=== PATIENT | male | born 1990 | race Caucasian/White ===

== ENCOUNTER 2017-09-07 06:09 | Emergency (ER) | payer BC, OTHER ==
[~2017-09-07] VITALS: Ht 175.3 cm; Wt 82.8 kg
[~2017-09-07 06:09] MED LIST: TAMS0.4C38 PO; TRAM-10 PO
[2017-09-07 06:13] VITALS: TEMP 36.8; Ht 175.3 cm; Wt 82.8 kg
[2017-09-07] MEDS ORDERED: ONDANSETRON INJ 2 MG/ML 2 ML VIAL IV STA (06:29)
[2017-09-07] MEDS ORDERED: SODIUM CHLORIDE 0.9% 1000ML 1,000 ML IV STA (06:29)
[2017-09-07] MEDS ORDERED: HYDROmorphone INJ 1 MG/ML SYR IV STA (06:29)
[2017-09-07 06:39] LABS: BASO % 0.2 %; BASO ABS # 0.03 K/uL (0-0.2); EOS % 0.9 %; EOS ABS # 0.12 K/uL (0-0.5); HEMATOCRIT 47.4 % (42-52); HEMOGLOBIN 16.7 g/dL (14.0-18.0); IG# 0.05 K/uL (0.00-0.02); LYMPH ABS # 1.92 K/uL (1.2-3.4); MEAN CELL VOLUME 88.8 fL (80-100); MEAN CORPUSCULAR HEMOGLOBIN 31.3 pg (25-34); MEAN CORPUSCULAR HGB CONC 35.2 g/dl (32-36); MEAN PLATELET VOLUME 10.6 fL (7.4-10.4); MONO % 7.2 %; MONO ABS # 0.92 K/uL (0.11-0.59); NEUT % 76.3 %; NEUT ABS # 9.78 K/uL (1.4-6.5); PLATELET COUNT 246 K/uL (130-400); RED CELL DISTRIBUTION WIDTH CV 13.8 % (11.5-14.5); RED CELL DISTRIBUTION WIDTH SD 45.2 fL (36.4-46.3); WHITE BLOOD COUNT 12.82 K/uL (4.8-10.8)
[2017-09-07 06:57] LABS: ALBUMIN 4.3 gm/dl (3.4-5.0); CALCIUM 9.3 mg/dl (8.5-10.1); CREATININE 1.46 mg/dl (0.60-1.40); POTASSIUM 3.7 mmol/L (3.5-5.1); TOTAL PROTEIN 8.3 gm/dl (6.4-8.2)
[2017-09-07] MEDS ORDERED: HYDROmorphone INJ 0.5 MG/0.5 ML SYR IV STA (08:56)
[2017-09-07] MEDS ORDERED: KETOROLAC TROMETHAMINE 30 MG/ML VIAL IV STA (08:56)
[2017-09-07] MEDS ORDERED: OXYC-57 PO (08:58)
[2017-09-07 09:04] VITALS: BP 117/72; PULSE 97; O2SAT 97
--- NOTE | 2017-09-07 09:04 | DIAGNOSTIC IMAGING REPORT ---
(SKY/BLAD)RETROPERITON COMP HISTORY: 27 years-old Male Pt c/o Rt sided flank pain acute right-sided flank pain COMPARISON: KUB of same day, CT 04/21/2015 TECHNIQUE: Multiple real-time sonographic images of the kidneys and bladder were obtained assessing grayscale appearance and color flow FINDINGS: The right kidney measures 11.7 cm in length and demonstrates mild right-sided hydronephrosis. 8 mm cyst of the interpolar right kidney laterally. Urinary bladder is unremarkable. Left kidney demonstrates no shadowing renal calculi or hydronephrosis. Hypoechoic 8 mm area of the interpolar left kidney may reflect a small cyst. Left kidney measures up to 10.5 cm in length. IMPRESSION: 1. Mild right-sided hydronephrosis. 2. Unremarkable sonographic appearance of the bladder and left kidney. The above report was generated using voice recognition software. It may contain grammatical, syntax or spelling errors. Electronically signed by: Javier Escudero M.D. 09/07/2017 8:06 AM Dictated Date/Time: 09/07/2017 8:01 AM
--- NOTE | 2017-09-07 09:04 | DIAGNOSTIC IMAGING REPORT ---
KUB CLINICAL HISTORY: Right flank pain. COMPARISON STUDY: CT of the abdomen and pelvis April 21, 2015. FINDINGS: The bowel gas pattern is normal. A 4 mm left pelvic calcification was shown to represent a phlebolith on prior CT. A punctate 1 mm calcific density likely reflects a phlebolith although a tiny distal right ureteral calculus could appear similar. IMPRESSION: No convincing urinary calculi identified. Punctate 1 mm right pelvic application likely reflects a phlebolith although a tiny distal right ureteral calculus could appear similar. Electronically signed by: Joseph Downey M.D. 09/07/2017 7:28 AM Dictated Date/Time: 09/07/2017 7:23 AM
--- NOTE | 2017-09-07 09:24 | EMERGENCY ROOM VISIT NOTE ---
History Report prepared by Vik: Lorena Smith Under the Supervision of: Dr. Beny Villarreal M.D. First contact with patient: 06:40 Chief Complaint: KIDNEY STONE Stated Complaint: KIDNEY STONE History of Present Illness The patient is a 27 year old male who presents to the Emergency Room with complaints of intermittent right abdominal pain starting last night. The patient has a history of kidney stones. The pain feels similar to his previous kidney stones. He describes the pain as sharp. He has been feeling hot and cold. He is experiencing nausea. Source of History: patient Onset: last night Position: abdomen (right) Quality: sharp Timing: intermittent Associated Symptoms: + nausea Review of Systems See HPI for pertinent positives & negatives. A total of 10 systems reviewed and were otherwise negative. Past Medical & Surgical Medical Problems: (1) Kidney stones Family History Kidney stones Social History Smoking Status: Current Every Day Smoker Alcohol Use: occasionally Marital Status: single Housing Status: lives with family Occupation Status: employed Current/Historical Medications Scheduled Tamsulosin Hcl (Flomax), 0.4 MG PO DAILY Scheduled PRN Oxycodone/Acetaminophen 5MG/325MG (Percocet 5MG/325MG), 1-2 TAB PO Q4H PRN for Pain Tramadol (Ultram), 50 MG PO Q4H PRN for Pain Allergies Coded Allergies: No Known Allergies (Unverified , 04/21/15) Physical Exam Vital Signs Date Time Temp Pulse Resp B/P (MAP) Pulse Ox O2 Delivery O2 Flow Rate FiO2 09/07/17 09:04 97 18 117/72 97 Room Air 09/07/17 07:08 106 18 124/76 96 Room Air 09/07/17 06:36 109 20 127/61 98 Room Air 09/07/17 06:13 36.8 126 18 146/86 99 Room Air Physical Exam GENERAL: Awake, alert, well-appearing, in no acute distress HENT: Normocephalic, atraumatic. Oropharynx unremarkable. EYES: Normal conjunctiva. Sclera non-icteric. NECK: Supple. No nuchal rigidity. FROM. No JVD. RESPIRATORY: Clear to auscultation. CARDIAC: Regular rate, normal rhythm. Extremities warm and well perfused. Pulses equal. ABDOMEN: Soft, non-distended. No tenderness to palpation. No rebound or guarding. No masses. RECTAL: Deferred. MUSCULOSKELETAL: Chest examination reveals no tenderness. The back is symmetrical on inspection without obvious abnormality. There is no CVA tenderness to palpation. No joint edema. LOWER EXTREMITIES: Calves are equal size bilaterally and non-tender. No edema. No discoloration. NEURO: Normal sensorium. No sensory or motor deficits noted. SKIN: No rash or jaundice noted. Medical Decision & Procedures ER Provider Diagnostic Interpretation: X-ray results as stated below per interpretation by me and the radiologist. Radiology results as stated below per my review and radiologist interpretation: KUB CLINICAL HISTORY: Right flank pain. COMPARISON STUDY: CT of the abdomen and pelvis April 21, 2015. FINDINGS: The bowel gas pattern is normal. A 4 mm left pelvic calcification was shown to represent a phlebolith on prior CT. A punctate 1 mm calcific density likely reflects a phlebolith although a tiny distal right ureteral calculus could appear similar. IMPRESSION: No convincing urinary calculi identified. Punctate 1 mm right pelvic application likely reflects a phlebolith although a tiny distal right ureteral calculus could appear similar. Electronically signed by: Joseph Downey M.D. 09/07/2017 7:28 AM Dictated Date/Time: 09/07/2017 7:23 AM (SKY/RICKEY)RETROPERITON COMP HISTORY: 27 years-old Male Pt c/o Rt sided flank pain acute right-sided flank pain COMPARISON: KUB of same day, CT 04/21/2015 TECHNIQUE: Multiple real-time sonographic images of the kidneys and bladder were obtained assessing grayscale appearance and color flow FINDINGS: The right kidney measures 11.7 cm in length and demonstrates mild right-sided hydronephrosis. 8 mm cyst of the interpolar right kidney laterally. Urinary bladder is unremarkable. Left kidney demonstrates no shadowing renal calculi or hydronephrosis. Hypoechoic 8 mm area of the interpolar left kidney may reflect a small cyst. Left kidney measures up to 10.5 cm in length. IMPRESSION: 1. Mild right-sided hydronephrosis. 2. Unremarkable sonographic appearance of the bladder and left kidney. The above report was generated using voice recognition software. It may contain grammatical, syntax or spelling errors. Electronically signed by: Javier Escudero M.D. 09/07/2017 8:06 AM Dictated Date/Time: 09/07/2017 8:01 AM Laboratory Results 09/07/17 06:25 Red Blood Count 5.34, Mean Corpuscular Volume 88.8, Mean Corpuscular Hemoglobin 31.3, Mean Corpuscular Hemoglobin Concent 35.2, Mean Platelet Volume 10.6, Neutrophils (%) (Auto) 76.3, Lymphocytes (%) (Auto) 15.0, Monocytes (%) (Auto) 7.2, Eosinophils (%) (Auto) 0.9, Basophils (%) (Auto) 0.2, Neutrophils # (Auto) 9.78, Lymphocytes # (Auto) 1.92, Monocytes # (Auto) 0.92, Eosinophils # (Auto) 0.12, Basophils # (Auto) 0.03 09/07/17 06:25 Test 09/07/17 06:25 09/07/17 07:10 White Blood Count 12.82 K/uL (4.8-10.8) Red Blood Count 5.34 M/uL (4.7-6.1) Hemoglobin 16.7 g/dL (14.0-18.0) Hematocrit 47.4 % (42-52) Mean Corpuscular Volume 88.8 fL (80-100) Mean Corpuscular Hemoglobin 31.3 pg (25-34) Mean Corpuscular Hemoglobin Concent 35.2 g/dl (32-36) Platelet Count 246 K/uL (130-400) Mean Platelet Volume 10.6 fL (7.4-10.4) Neutrophils (%) (Auto) 76.3 % Lymphocytes (%) (Auto) 15.0 % Monocytes (%) (Auto) 7.2 % Eosinophils (%) (Auto) 0.9 % Basophils (%) (Auto) 0.2 % Neutrophils # (Auto) 9.78 K/uL (1.4-6.5) Lymphocytes # (Auto) 1.92 K/uL (1.2-3.4) Monocytes # (Auto) 0.92 K/uL (0.11-0.59) Eosinophils # (Auto) 0.12 K/uL (0-0.5) Basophils # (Auto) 0.03 K/uL (0-0.2) RDW Standard Deviation 45.2 fL (36.4-46.3) RDW Coefficient of Variation 13.8 % (11.5-14.5) Immature Granulocyte % (Auto) 0.4 % Immature Granulocyte # (Auto) 0.05 K/uL (0.00-0.02) Anion Gap 10.0 mmol/L (3-11) Est Creatinine Clear Calc Drug Dose 76.0 ml/min Estimated GFR () 75.3 Estimated GFR (Non- 65.0 BUN/Creatinine Ratio 5.8 (10-20) Calcium Level 9.3 mg/dl (8.5-10.1) Total Bilirubin 0.6 mg/dl (0.2-1) Direct Bilirubin 0.1 mg/dl (0-0.2) Aspartate Amino Transf (AST/SGOT) 51 U/L (15-37) Alanine Aminotransferase (ALT/SGPT) 54 U/L (12-78) Alkaline Phosphatase 84 U/L (45-117) Total Protein 8.3 gm/dl (6.4-8.2) Albumin 4.3 gm/dl (3.4-5.0) Urine Color YELLOW Urine Appearance CLEAR (CLEAR) Urine pH 7.5 (4.5-7.5) Urine Specific Eldred 1.010 (1.000-1.030) Urine Protein NEG (NEG) Urine Glucose (UA) NEG (NEG) Urine Ketones NEG (NEG) Urine Occult Blood 2+ (NEG) Urine Nitrite NEG (NEG) Urine Bilirubin NEG (NEG) Urine Urobilinogen NEG (NEG) Urine Leukocyte Esterase TRACE (NEG) Urine WBC (Auto) 1-5 /hpf (0-5) Urine RBC (Auto) 10-30 /hpf (0-4) Urine Hyaline Casts (Auto) 0 /lpf (0-5) Urine Epithelial Cells (Auto) 0-5 /lpf (0-5) Urine Bacteria (Auto) NEG (NEG) Urine Crystals CALCIUM OXALATE (NONE Labs reviewed by ED physician. Medications Administered Medications (Trade) Dose Ordered Sig/Winter Route Start Time Stop Time Status Last Admin Dose Admin Hydromorphone HCl (Dilaudid Inj) 1 mg NOW STAT IV 09/07/17 06:29 09/07/17 06:31 DC 09/07/17 06:37 1 MG Ondansetron HCl (Zofran Inj) 4 mg NOW STAT IV 09/07/17 06:29 09/07/17 06:31 DC 09/07/17 06:35 4 MG Sodium Chloride 1,000 ml @ 999 mls/hr Q1H1M STAT IV 09/07/17 06:29 09/07/17 07:29 DC 09/07/17 06:36 999 MLS/HR Ketorolac Tromethamine (Toradol Inj) 30 mg NOW STAT IV 09/07/17 08:56 09/07/17 08:57 DC 09/07/17 09:02 30 MG Hydromorphone HCl (Dilaudid Inj) 0.5 mg NOW STAT IV 09/07/17 08:56 09/07/17 08:57 DC 09/07/17 09:03 0.5 MG ED Course 0642: Past medical records reviewed. The patient was evaluated in room B6. A complete history and physical examination was performed. 0853: Upon reexamination the patient is resting comfortably. I discussed results and treatment plan with the patient. He verbalizes agreement and understanding. The patient is ready for discharge. Medical Decision Differential diagnosis: Etiologies such as appendicitis, diverticulitis, PUD, biliary pathology, UTI, pancreatitis, obstruction, mesenteric ischemia, aortic pathology, infections, inflammatory bowel disease, renal colic, as well as others were entertained. This is a 27-year-old male who presents emergency department complaining of flank pain. Patient was given Dilaudid here in the emergency department as well as Toradol. Repeat examination revealed much improvement in the patient's symptoms. Patient appears to have a 1 mm stone on KUB. I will note that the patient is afebrile. I do feel he is well enough to be discharged home for follow-up with urology. Patient was in agreement with the treatment plan. Medication Reconcilliation Current Medication List: was personally reviewed by me Blood Pressure Screening Patient's blood pressure: Elevated blood pressure Blood pressure disposition: Elevated BP felt to be situational Impression Primary Impression: Kidney stone Scribe Attestation The scribe's documentation has been prepared under my direction and personally reviewed by me in its entirety. I confirm that the note above accurately reflects all work, treatment, procedures, and medical decision making performed by me. Departure Information Dispostion Home / Self-Care Prescriptions Oxycodone/Acetaminophen 5MG/325MG (PERCOCET 5MG/325MG) Tab 1-2 TAB PO Q4H Y for Pain, #14 TAB Prov: Beny Villarreal MD 09/07/17 Referrals Lavell Baer, II., DO Forms HOME CARE DOCUMENTATION FORM, IMPORTANT VISIT INFORMATION Patient Instructions Kidney Stones, Kidney Stones - [facility], Kidney Stones Eval, Kidney Stones Prevent, Kidney Stones Risk, Kidney Stones Tx Meds, My [facility] Additional Instructions Follow up with Dr Baer office for continued pain You received narcotic or benzodiazepene medication while in the emergency room today. This is an addictive medication that may cause drowziness as well as constipation. Do not drive, operate heavy machinery, or drink alcohol under the influence of this medication. Take 600 mg Ibuprofen every 6 hours Take Percocet for breakthrough pain You have been examined and treated today on an emergency basis only. This is not a substitute for, or an effort to provide, complete comprehensive medical care. It is impossible to recognize and treat all injuries or illnesses in a single emergency department visit. It is therefore important that you follow up closely with your PCP. Call as soon as possible for an appointment. Thank you for your time and consideration. I look forward to speaking with you again soon. Please don't hesitate to call us if you have any questions.
== END 2017-09-07 09:15 | disposition home or self-care (01) ==
LOC: C.EDB 06:10
DX: N20.0 Calculus of kidney (principal); R11.0 Nausea; Z87.442 Personal history of urinary calculi; F17.200 Nicotine dependence, unspecified, uncomplicated